=== PATIENT | male | born 1985 | race African-American/Black ===

== ENCOUNTER 2019-03-01 14:02 | Emergency (ER) | payer OTHER ==
[~2019-03-01] VITALS: Ht 172.7 cm; Wt 74.8 kg
[2019-03-01 14:22] VITALS: BP 135/80
[2019-03-01] MEDS ORDERED: NKM (14:24)
--- NOTE | 2019-03-01 14:30 | NUR ---
ED Nurse Note: Patient walked into ED from home c/o lower back pain, patient reports he was pulling out 'weeds' and bent his back and might have hurt his back yesterday. patient is alert awake x4 ambulatory, steady gait, breathing unlabored and even.
[2019-03-01] MEDS ORDERED: Ketorolac 60mg Inj IM ONE (14:45)
[2019-03-01] MEDS ORDERED: Cyclobenzaprine 10mg Tab ORAL ONE (14:45)
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
[2019-03-01] MEDS ORDERED: IBUPROFEN800 MG ORAL (15:56)
[2019-03-01] MEDS ORDERED: LIDODERM700 M1 TOPIC (15:56)
[2019-03-01] MEDS ORDERED: CYCLOBENZAPRINE10 MG ORAL (15:56)
--- NOTE | 2019-03-01 16:04 | NUR ---
ER DISCHARGE NOTE: Patient is cleared to be discharged per ERMD DR DAVID, pt is aox4, on room air, with stable vital signs. pt was given dc and prescription instructions, pt was able to verbalize understanding, pt id band removed without complications. pt is able to ambulate with steady gait. pt took all belongings.
[2019-03-14] MEDS ORDERED: IBU800 MG PO (13:20)
[2019-03-14] MEDS ORDERED: ROBAXIN-500MG ORAL (13:20)
== END 2019-03-01 16:05 | disposition home or self-care (01) ==
LOC: EMR 15:16
DX: S33.5XXA Sprain of ligaments of lumbar spine, initial encounter (principal); M62.830 Muscle spasm of back; X58.XXXA Exposure to other specified factors, initial encounter; Y93.H2 Activity, gardening and landscaping; Y92.9 Unspecified place or not applicable; Y99.0 Civilian activity done for income or pay
CPT/HCPCS: 96372; Z7502; 99283